=== PATIENT | female | born 1950 | race Two or more races ===

== ENCOUNTER 2018-11-26 12:20 | Outpatient (CLI) | payer MEDICARE, OTHER | END 2018-11-26 23:59 | disposition home or self-care (01) | LOC: WOU 12:20 | PROVIDERS: ATTEND Surgery | DX: T86.821 Skin graft (allograft) (autograft) failure (principal); T81.31XA Disruption of external operation (surgical) wound, not elsewhere classified, initial encounter; N82.3 Fistula of vagina to large intestine; Z96.641 Presence of right artificial hip joint; Z85.038 Personal history of other malignant neoplasm of large intestine; Z92.21 Personal history of antineoplastic chemotherapy; Z80.9 Family history of malignant neoplasm, unspecified; Z83.3 Family history of diabetes mellitus; Z84.89 Family history of other specified conditions; L59.8 Other specified disorders of the skin and subcutaneous tissue related to radiation | CPT/HCPCS: A6253 ×2; A6402; G0463 ==